=== PATIENT | female | born 1955 | race Caucasian/White ===

== ENCOUNTER → 2019-09-09 | Outpatient (CLI) | payer MEDICARE, MEDICAID ==
--- NOTE | 2019-09-11 08:57 | CT ---
Procedure: CT LUNG SCREENING Exam Date: 09/09/2019 Ordering Provider: SKUHI SUNSHINE Clinical Indication: PERSONAL HISTORY OF TOBACCO USE current cigarette smoker. 25 pack years. This patient meets eligibility criteria for low-dose CT lung cancer screening. Comparison: None. Technique: Using a multislice scanner, sequential helical axial imaging was obtained in the thorax, 2.5 mm thickness, 2.5 mm separation, from the level of the thoracic inlet through the lung bases without IV contrast. A low dose protocol was utilized for BMI less than 30: BMI: 21.0. CTDI: 1.77 mGy. 120. kVp. 45 mA. DLP 73.72 mGy-cm. 2D sagittal and coronal reconstructed images, 6.0 mm thickness, were obtained. This exam was performed according to our departmental dose optimization program which includes use of automated exposure control, adjustment of the mA and/or kV according to patient size and/or use of iterative reconstruction technique. Nodule measurements under 10 mm are given as mean value of 3 axes diameters. FINDINGS: Lungs and large airways: Bilateral parenchymal blebs diffusely upper and lower lung frias in a centrilobular pattern. Bilateral nodules in the lung apices which are most likely associated with pleural scarring. Nodule on the left at ridges 6 mm and nodule on the right averages 5.3 mm., Both nodules on axial series 2, image 19. A dense solid subpleural nodule with slightly irregular margins and minimal spiculation with extension to the pleura is visible in the anterior right upper lobe with mean diameter 5.3 mm, on image 2/42. Totally calcified nodule in the superior segment left upper lobe abutting the left major fissure. Calcified subpleural nodule lateral right lower lobe. Pleural parenchymal scarring in all lobes especially inferior lingula. Subpleural groundglass nodule versus pleural focal thickening anterolateral right upper lobe measuring 4 mm, on axial image 2/34. Perifissural nodule right major fissure 4.6 mm on image 2/73. No focal infiltrates. Pleura and space: Multifocal pleural thickening more prevalent in the upper lobes. Also larger nodular thickening versus subpleural nodules as discussed above Mediastinum and aubrey: evaluation limited by low dose technique and lack of IV contrast. Small lymph nodes. Largest is 1.4 x 0.7 cm abutting the sammie and superior to the right pulmonary artery. No dominant solid masses. Heart and great vessels: Coronary artery calcifications. Atherosclerotic calcifications in several brachiocephalic vessels and the thoracic aorta. Chest wall, lower neck, axillae: Evaluation also limited by same factors as described above. 1.5 cm mass versus focal asymmetry superior medial quadrant of the right breast. Bilateral breast calcifications. Upper abdomen: Evaluation limited by low-dose technique. No free air or free fluid. Normal density and size of the adrenal glands and spleen. Gallbladder visualized. Osseous structures: Evaluation limited by low dose MIP technique. No lytic or blastic lesions. IMPRESSION: Subpleural nodules versus focal pleural thickening in the bilateral apices, 6 mm mean diameter. Solid subpleural nodule anterior right upper lobe, less likely to represent pleural thickening, 5.3 mm mean diameter. Other smaller nodules including a groundglass nodule. Perifissural nodule right lung on the major fissure. Emphysematous changes are centrilobular and symmetric upper and lower lung frias. Pleural parenchymal scarring. [facility] Best Practice Recommendations: please see below for Lung RADS category and FOLLOW-UP.* *Lung RADS category CATEGORY 3S - Probably benign (1-2% malignancy probability), short term follow-up suggested. NODULES: Solid nodule(s) 6mm (113.1 mm3) to less than 8mm (268.1 mm3) at baseline, or new 4mm (33.5 mm3) to under 6mm (113.1 mm3) solid nodule. Part solid nodule total diameter >= 6mm (113.1 mm3) with solid component less than 6mm, or new less than 6mm total diameter nodule] OR new <6 mm (113.1 mm3) total diameter. GGN >= 30 mm (>=19706 mm3) on baseline CT or new. FOLLOW-UP: Please return for a Low Dose Chest CT in 6 months for re-evaluation. 2. Lung RADS Modifier S - Clinically Significant or Potentially Clinically Significant Findings (non lung cancer). Focal asymmetry versus mass density upper inner quadrant right breast and generally increased density in the right breast compared to the left. No record of breast imaging at this facility. Recommend bilateral diagnostic digital breast tomosynthesis follow-up. Electronically signed by: Mode Martinez MD 09/11/2019 8:55 AM TRANSFER [employer]ENT
== END ==
LOC: CT 11:15
PROVIDERS: ATTEND Emergency Medicine
DX: Z87.891 Personal history of nicotine dependence (principal); R91.8 Other nonspecific abnormal finding of lung field; J43.9 Emphysema, unspecified